=== PATIENT | female | born 1960 | race African-American/Black ===

== ENCOUNTER 2022-11-10 17:49 | Emergency (ER) | payer BC ==
[~2022-11-10] VITALS: Ht 152.4 cm; Wt 73.0 kg
[2022-11-10 17:51] VITALS: BP 113/72
== END 2022-11-10 20:05 | disposition left against medical advice (07) ==
LOC: ER 17:49
DX: R53.1 Weakness (principal); R42 Dizziness and giddiness; I49.3 Ventricular premature depolarization; K42.9 Umbilical hernia without obstruction or gangrene; I42.9 Cardiomyopathy, unspecified
CPT/HCPCS: 93005; 99283